=== PATIENT | female | born 1990 | race Caucasian/White ===

== ENCOUNTER 2024-12-23 07:48 | Day surgery (SDC) | payer BC, MEDICAID, SELFPAY ==
[2024-11-30 10:59] LABS: Hematocrit 40.1 % (37-47); Hemoglobin 13.3 g/dL (12.0-15.0); Mean Corp Hgb Conc 33.2 g/dL (32-36); Mean Corpuscular Hgb 29.5 pg (27.0-32.0); Mean Corpuscular Volume 88.9 fL (81-99); Mean Platelet Vol. 11.3 fl (6.2-12.0); Platelet Count 197 K/mm3 (150-450); RBC Distribution Width SD 42.2 fl (35.1-43.9); Red Blood Count 4.51 M/mm3 (4.2-5.4); White Blood Count 5.5 K/mm3 (4.4-11.0)
[2024-11-30 17:24] LABS: Anion Gap 15 (5-15); BUN 17 mg/dL (4-19); BUN/Creat Ratio 19.9 RATIO (10-20); Calcium 10.7 mg/dL (7.6-11.0); Carbon Dioxide 18.1 mmol/L (22.0-29.0); Chloride 102 mmol/L (96-108); Creatinine, Serum 0.8 mg/dL (0.6-1.0); EST Glomerular Filtration Rate 95 (>60); Glucose 256 mg/dL (70-99); Potassium 3.9 mmol/L (3.3-5.1); Sodium Level 135 mmol/L (133-145)
[2024-12-06 11:08] LABS: Cotinine Screen Blood <1.0 ng/mL (.); Nicotine Blood <1.0 ng/mL (.)
--- NOTE | 2024-12-09 17:25 | PAT.ANE_ITS ---
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 When Was Last Pacemaker Check QUESTION #4 FULL TEXT: You/Your Family Experience fever (hyperthermia) with Anesthesia Last Oral Intake Last Oral intake: Last Oral Intake NPO since Meds taken in AM with sips of water? Meds patient instructed to take am of surgery PONV PONV - senior search marketing analyst: PONV - senior search marketing analyst Female Yes 12/09/24 09:31 HX of Motion Sickness Yes 12/09/24 09:31 HX of N/V After Surgery Yes 12/09/24 09:31 Non-Smoker Yes 12/09/24 09:31 Duration of Surgery greater Yes 12/09/24 09:31 than 60 minutes Number of Risk Factors 5 12/09/24 09:31 PONV Score Severe Risk 12/09/24 09:31 Height & Weight Height & Weight: Anesthesia: Height & Weight Height 5 ft 6 in 10/20/24 10:13 Respiratory Assessment Respiratory Assessment - senior search marketing analyst: Respiratory Tract Infection Hx - senior search marketing analyst Hx Respiratory Tract Infection No 12/09/24 09:31 STOP Sleep Apnea STOP Sleep Apnea - senior search marketing analyst: STOP Sleep Apnea - senior search marketing analyst Hx Hypertension Yes: NO MEDS PRESENTLY 12/09/24 09:31 Hx Sleep Apnea No 12/09/24 09:31 CPAP BIPAP Do you snore loudly (louder No 12/09/24 09:31 than talking or can be heard Do you often feel tired/ No 12/09/24 09:31 fatigued/ sleepy during daytime? Has anyone observed you stop No 12/09/24 09:31 breathing during sleep? STOP Results Negative 12/09/24 09:31 QUESTION #5 FULL TEXT : Do you snore loudly (louder than talking or can be heard through closed doors)? 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 Specify any problems Hx of Preganancy in last 3 No 12/09/24 09:31 Months Nurse Filling Out Transfusion VCHRISTIN 12/09/24 09:31 & Questions: Date: 12/09/24 12/09/24 09:31 Time: 09:32 12/09/24 09:31 Patient unable to answer at this time (ie. confused, unrespo /Reproduction History /Reproductive History - senior search marketing analyst: /Reproductive Hx- senior search marketing analyst Hx Now No 12/09/24 09:31 Gestational Age (in weeks): EDC: Hx Hx Para Hx Section SAB No 12/09/24 09:31 [facility] Medical History (Updated 12/09/24 @ 09:31 by Maren Salinas) Cancer Anxiety Thyroid disease Insulin dependent diabetes mellitus Diabetes Anemia Back pain Migraine headache Injury of head and neck Seizures Dietary restriction Gastric reflux Former smoker Hypertension Metal plate in skull History of gastroesophageal reflux (GERD) History of hypoglycemia History of renal failure History of seizures History of brain tumor History of pneumonia History of hypertension History of migraine History of diabetes mellitus History of cancer History of blood transfusion History of UTI History of back problems History of seasonal allergies Astrocytoma Adrenal cortex neoplasm Home Medications ?Medication ?Instructions ?Recorded ?Last Taken ?Type blood-glucose sensor (Dexcom G7 #1 ea 10/20/24 Unknown History Sensor device) insulin glargine 100 unit/mL (3 16 unit subcut BID Unknown History mL) subcutaneous pen (Lantus Solostar U-100 Insulin) insulin lispro 100 unit/mL 1 sliding scale dose subcut Q6H 10/20/24 Unknown History subcutaneous solution lacosamide 100 mg tablet (Vimpat) 100 mg PO BID Unknown History levetiracetam 500 mg tablet 500 mg PO BID 10/20/24 Unk nown History (Keppra) diphenhydramine HCl 25 mg tablet 25 mg PO PRN 11/30/24 Unknown History (Banophen) levothyroxine 100 mcg tablet 100 mcg PO DAILY 11/30/24 Unknown History promethazine 25 mg tablet 25 mg PO PRN 11/30/24 Unknow n History propranolol 10 mg tablet 10 mg PO DAILY 11/30/24 Unkn own History Lactobacillus acidophilus 10 100 mmu cells PO DAILY Unknown History billion cell capsule (NewFlora) Lactobacillus acidophilus 10 100 mmu cells PO DAILY Unknown History billion cell capsule (NewFlora) alprazolam 0.5 mg tablet 0.25 mg PO BID PRN anxiety 0 12/09/24 Unknown History diazepam 5 mg/spray (0.1 mL) nasal 5 mg intranasal PRN 12/09/24 Unknown History spray (Valtoco) glucagon 3 mg/actuation nasal 3 mg intranasal PRN 03/30 Unknown History spray (Baqsimi) milk thistle 150 mg capsule 150 mg PO DAILY 12/09/24 U nknown History omeprazole 20 mg capsule,delayed 20 mg PO DAILY Unknown History release potassium chloride 20 mEq 20 meq PO DAILY 12/09/24 Unk nown History tablet,extended release(part/cryst) sennosides 8.6 mg tablet (senna) 8.6 mg PO BID PRN con stipation 12/09/24 Unknown History Allergy/AdvReac Type Severity Reaction Status Date / Time adhesive tape (tape) Allergy Mild blisters Verified 12/09/24 09:09 Corticosteroids Allergy Mild Other Verified 12/09/24 09:09 (Glucocorticoids) (steroids) Family History (Updated 10/20/24 @ 10:12 by Emily Hutton) Father Alcoholism Skin cancer Mother Anemia Anxiety Depression Hypertension Grandmother Diabetes Arthritis Surgical History (Updated 12/09/24 @ 09:31 by Maren Salinas) Hx of brain surgery H/O tubal ligation Previous section H/O: hysterectomy H/O lumpectomy Social History (Updated 10/20/24 @ 10:12 by Emily Hutton) Smoking Status: Former smoker how long ago did patient quit smoking: quit 6-7 years ago alcohol intake: never substance use type: does not use additional social history: pt denies vaping, denies marijuana use,denies edibles, denies aspirin, denies ibuprofen use. Audit: Pertinent Findings Pertinent Findings EKG Perinent findings: October 16, 2023. Sinus tachycardia 131 bpm. No STEMI. Normal QTc. Recommendation Anesthesia Recommendation Anesthesia recommendation: F/U recommended (Patient should get a repeat twelve- lead EKG prior to surgery.)
--- NOTE | 2024-12-21 13:57 | EKG12_ITS ---
Test Reason : PRE OP Blood Pressure : */* mmHG Vent. Rate : 58 BPM Atrial Rate : 58 BPM P-R Int : 146 ms QRS Dur : 84 ms QT Int : 404 ms P-R-T Axes : 43 84 45 degrees QTcB Int : 396 ms Sinus bradycardia Otherwise normal ECG Confirmed by ANGEL MAX, AP ([id number]), associate entertainment editor ZBIGNIEW VALENZUELA ([id number]) on 12/22/2024 8:49:11 AM Referred By: Courtney Ferguson Confirmed By: AP ORTIZ MD
[2024-12-21 19:00] LABS: Hemoglobin A1c 6.7 % (<=5.6)
[2024-12-23] VITALS (12 sets, daily range): BP systolic 94–118; BP diastolic 53–76; PULSE 65–72; RESP 16; TEMP 36.1–37.1; O2SAT 92–98; BMI 37.3
--- NOTE | 2024-12-23 08:07 | EKG12_ITS ---
Test Reason : P Blood Pressure : */* mmHG Vent. Rate : 68 BPM Atrial Rate : 68 BPM P-R Int : 148 ms QRS Dur : 84 ms QT Int : 376 ms P-R-T Axes : 63 75 54 degrees QTcB Int : 399 ms Normal sinus rhythm Normal ECG Confirmed by ANGEL MAX, AP ([id number]), writer editor SUSAN GONZALEZ ([id number]) on 12/24/2024 11:38:09 AM Referred By: Courtney Ferguson Confirmed By: AP ORTIZ MD
[2024-12-23] MEDS: 0.9% Normal Saline (1000mL) 1,000 ML 15 ML IV (08:36)
--- NOTE | 2024-12-23 08:46 | PRE.ANES_ITS ---
ASA Classification* ASA Classification ASA Classification: 3 Assessment & Plan Anesthesia* Anesthesia Assessment Anesthesia Assessment: Discussed sedation and/or anesthesia options, risks, benefits, and alternatives with patient/parents/legal guardian/POA. Questions invited. The patient/parents/legal guardian/POA seems to understand and agrees to proceed with anesthesia plan. Reviewed the physical assessment, medical history, allergy history and patient home medications list prior to surgery/procedure/anesthetic and documented any changes. Performed airway and anesthesia risk assessments. Anesthesia Type Anesthesia Type: General History Source History Obtained from:: Patient and Chart Anesthesia Focused Assessment* Temperature: 98.3 F Pulse Rate: 69 Blood Pressure: 118/76 Respiratory Rate: 16 Pulse Ox: 98 Oxygen Delivery Method: Room Air Airway Assessment Mouth opens: >3 cm Mallampati Score: I Teeth Condition: Chipped/Broken (Patient has a broken right lower molar.) Neck Range of motion (ROM): Full ROM Focused Labs Anesthesia Preop lab: CBC WBC 5.5 K/mm3 (4.4-11.0) 11/30/24 10:11/30/24 RBC 4.51 M/mm3 (4.2-5.4) 11/30/24 10:11/30/24 Hgb 13.3 g/dL (12.0-15.0) 11/30/24 10:11/30/24 Hct 40.1 % (37-47) 11/30/24 10:11/30/24 Plt Count 197 K/mm3 (150-450) 11/30/24 10:11/30/24 CHEMISTRY Potassium 3.9 mmol/L (3.3-5.1) 11/30/24 10:11/30/24 Sodium 135 mmol/L (133-145) 11/30/24 10:11/30/24 BUN 17 mg/dL (4-19) 11/30/24 10:11/30/24 Creatinine 0.8 mg/dL (0.6-1.0) 11/30/24 10:11/30/24 Glucose 256 mg/dL (70-99) H 11/30/24 10:11/30/24 TSH 2.100 uIU/mL (0.300-4.200) 12/21/24 14:32 12/04 05/30 COAG Pre-Assessment Diagnosis/Proposed Procedure Planned Operative Procedure(s): (B) Bilateral breast reduction Anesthesia History Anesthesia History - direct support professional caregiver: Anesthesia History - direct support professional caregiver Hx Hospitalization No 12/09/24 09:31 Any Problems With Anesthesia No 12/09/24 09:31 Cholinesterase deficiency No 12/09/24 09:31 You/Your Family Experience No 12/09/24 09:31 fever (hyperthermia) with Relationship Recent Exposure to Contagious No 12/23/24 08:13 Disease Does patient have nerve No 12/09/24 09:31 stimulator Patient instructed to have device shut off --Does patient have Pacemaker No 12/23/24 08:13 or ICD? When Was Last Pacemaker Check QUESTION #4 FULL TEXT: You/Your Family Experience fever (hyperthermia) with Anesthesia Last Oral Intake Last Oral intake: Last Oral Intake NPO since 06:00 12/23/24 08:13 Meds taken in AM with sips of Yes 12/23/24 08:13 water? Meds patient instructed to see medlist 12/23/24 08:13 take am of surgery Any additional information?: Yes NPO since: 06:00 (Patient medications this morning at 6 AM with sips of water.) Meds taken in AM with sips of water?: Yes PONV PONV - direct support professional caregiver: PONV - direct support professional caregiver Female Yes 12/09/24 09:31 HX of Motion Sickness Yes 12/09/24 09:31 HX of N/V After Surgery Yes 12/09/24 09:31 Non-Smoker Yes 12/09/24 09:31 Duration of Surgery greater Yes 12/09/24 09:31 than 60 minutes Number of Risk Factors 5 12/09/24 09:31 PONV Score Severe Risk 12/09/24 09:31 Height & Weight Height & Weight: Anesthesia: Height & Weight Height 5 ft 6 in 12/23/24 08:13 Weight: 105 kg 12/23/24 08:13 Body Mass Index (BMI) 37.3 12/23/24 08:13 Respiratory Assessment Respiratory Assessment - direct support professional caregiver: Respiratory Tract Infection Hx - direct support professional caregiver Hx Respiratory Tract Infection No 12/09/24 09:31 Any additional information?: Yes Hx Respiratory Tract Infection: Yes (Recent cold in the past couple weeks. Currently resolved. Lungs are clear) STOP Sleep Apnea STOP Sleep Apnea - direct support professional caregiver: STOP Sleep Apnea - direct support professional caregiver Hx Hypertension Yes: NO MEDS PRESENTLY 12/09/24 09:31 Hx Sleep Apnea No 12/09/24 09:31 CPAP BIPAP Do you snore loudly (louder No 12/09/24 09:31 than talking or can be heard Do you often feel tired/ No 12/09/24 09:31 fatigued/ sleepy during daytime? Has anyone observed you stop No 12/09/24 09:31 breathing during sleep? STOP Results Negative 12/09/24 09:31 QUESTION #5 FULL TEXT : Do you snore loudly (louder than talking or can be heard through closed doors)? Tobacco Use History Tobacco Use History - direct support professional caregiver: Tobacco Use History - direct support professional caregiver Tobacco Use Smoking Status Former smoker 12/09/24 09:31 Hx Tobacco Use No 12/09/24 09:31 Years Smoking Packs Smoked per Day Smoking Cessation Date was No - quit smoking greater 12/09/24 09:31 within the last 15 years than 15 years ago Hx Smoking Cessation Date Hx Smoking Cessation Counseling Hematologic Medial History Hematologic Hx - direct support professional caregiver: Hematologic Medical Hx - machine repairer Hx of Blood Transfusion Yes 12/09/24 09:31 Hx of Transfusion in last 3 No 12/09/24 09:31 Months Date of Last Transfusion (if within last 3 months) Ever experience any problems No 12/09/24 09:31 with transfusion(s)? Specify any problems Hx of Preganancy in last 3 No 12/09/24 09:31 Months Nurse Filling Out Transfusion VCHRISTIN 12/09/24 09:31 & Questions: Date: 12/09/24 12/09/24 09:31 Time: 09:32 12/09/24 09:31 Patient unable to answer at this time (ie. confused, unrespo /Reproduction History /Reproductive History - direct support professional caregiver: /Reproductive Hx- direct support professional caregiver Hx Now No 12/09/24 09:31 Gestational Age (in weeks): EDC: Hx Hx Para Hx Section SAB No 12/09/24 09:31 Active Medications Active Medications: Current Medications Generic Name Dose Route Start Last Admin Trade Name Freq PRN Reason Stop Dose Admin Cefazolin Sodium 2 gm/ N/A 20 mls @ 400 mls/hr 12/23/24 09:25 IV 12/23/24 09:27 PREOP ONE Sodium Chloride 1,000 mls @ 15 mls/hr 12/23/24 08:35 12/23/24 08:36 IV 15 mls/hr .Q48H NICHOLE Administration PFSH Medical History Cancer Anxiety Thyroid disease Insulin dependent diabetes mellitus Diabetes Anemia Back pain Migraine headache Injury of head and neck Seizures Dietary restriction Gastric reflux Former smoker Hypertension Metal plate in skull History of gastroesophageal reflux (GERD) History of hypoglycemia History of renal failure History of seizures History of brain tumor History of pneumonia History of hypertension History of migraine History of diabetes mellitus History of cancer History of blood transfusion History of UTI History of back problems History of seasonal allergies Astrocytoma Adrenal cortex neoplasm Home Medications ?Medication ?Instructions ?Recorded ?Last Taken ?Type blood-glucose sensor (Dexcom G7 #1 ea 10/20/24 Unknown History Sensor device) insulin glargine 100 unit/mL (3 16 unit subcut BID Unknown History mL) subcutaneous pen (Lantus Solostar U-100 Insulin) insulin lispro 100 unit/mL 1 sliding scale dose subcut Q6H 10/20/24 Unknown History subcutaneous solution lacosamide 100 mg tablet (Vimpat) 100 mg PO BID 12/23/24 History levetiracetam 500 mg tablet 500 mg PO BID 10/20/24 History (Keppra) diphenhydramine HCl 25 mg tablet 25 mg PO PRN 11/30/24 Unknown History (Banophen) levothyroxine 100 mcg tablet 100 mcg PO DAILY 11/30/24 Unknown History promethazine 25 mg tablet 25 mg PO PRN 11/30/24 Unknow n History propranolol 10 mg tablet 10 mg PO DAILY 11/30/24 Unkn own History Lactobacillus acidophilus 10 100 mmu cells PO DAILY Unknown History billion cell capsule (NewFlora) Lactobacillus acidophilus 10 100 mmu cells PO DAILY Unknown History billion cell capsule (NewFlora) alprazolam 0.5 mg tablet 0.25 mg PO BID PRN anxiety 0 12/09/24 Unknown History diazepam 5 mg/spray (0.1 mL) nasal 5 mg intranasal PRN 12/09/24 Unknown History spray (Valtoco) glucagon 3 mg/actuation nasal 3 mg intranasal PRN 03/30 Unknown History spray (Baqsimi) milk thistle 150 mg capsule 150 mg PO DAILY 12/09/24 U nknown History omeprazole 20 mg capsule,delayed 20 mg PO DAILY Unknown History release potassium chloride 20 mEq 20 meq PO DAILY 12/09/24 Unk nown History tablet,extended release(part/cryst) sennosides 8.6 mg tablet (senna) 8.6 mg PO BID PRN con stipation 12/09/24 Unknown History cephalexin 500 mg capsule 500 mg PO BID #14 caps 12/21 Unknown Rx oxycodone-acetaminophen 5 mg-325 1 tab PO TID PRN pain 3 days #8 12/21/24 Unknown Rx mg tablet (Percocet) tab-caps Allergy/AdvReac Type Severity Reaction Status Date / Time adhesive tape (tape) Allergy Mild blisters Verified 12/23/24 08:11 Corticosteroids AdvReac Mild Other Verified 12/23/24 08:11 (Glucocorticoids) (steroids) Family History Father Alcoholism Skin cancer Mother Anemia Anxiety Depression Hypertension Grandmother Diabetes Arthritis Surgical History Hx of brain surgery H/O tubal ligation Previous section H/O: hysterectomy H/O lumpectomy Social History Smoking Status: Former smoker how long ago did patient quit smoking: quit 6-7 years ago alcohol intake: never substance use type: does not use additional social history: pt denies vaping, denies marijuana use,denies edibles, denies aspirin, denies ibuprofen use. Review of Systems (Anesthesia) ROS Narrative System reviewed and no additional complaints, except as documented.
[2024-12-23 08:58] LABS: Bedside Glucose 62 mg/dL (74-106)
--- NOTE | 2024-12-23 09:25 | BR_PTH ---
PATIENT: SALBADOR ESCOBAR LOC: [facility] – [place] U#:[id number] AGE/SX: 34/F ROOM: RE12/23/[address]: Dr. Courtney Ferguson MD : 1990 BED: DIS: 12/23/2024 SPEC #: [id number] RECD: 12/24/24 09:55 STATUS: RAD AMIRAH #: [id number] FELA: 12/23/24 09:[address]: Courtney Ferguson DEPT: SURGICAL PATHOLOGY RECD BY: Karan Mayer ENTERED: 12/24/24 09:56 SP TYPE: MAMOPLASTY OTHR DR: Rachana Primary Care Phys Tissues: B - Right breast, NOS A - Left breast, NOS Procedures: Surgery Specimen Level IV HEADER OPERATION: Bilateral breast reduction PRE-OP DIAGNOSIS: Breast hypertrophy, chronic neck pain, chronic shoulder pain, chronic back pain TISSUE SUBMITTED: A- Left breast tissue - 376gm, B- Right breast tissue - 480gm Ischemic Time: 1 minute Fixation Time: 30 hours MICROSCOPIC DIAGNOSIS A. Left breast, reduction mammoplasty: * Benign breast tissue with fibroadenoma (0.6 cm) and rare benign microcalcification (376 grams). B. Right breast, reduction mammoplasty: * Benign breast tissue (480 grams). MICROSCOPIC DESCRIPTION Slides are reviewed. GROSS DESCRIPTION A - Received in fixative is one container labeled with the patient's name and designated Left breast tissue- 376gm. The specimen consists of three pieces of skin with underlying fatty tissue. The first piece of skin is a triangle measuring 8.0 x 4.5 cm. The attached tissue extends to a depth of 4.5 cm. The next triangular shape piece of skin measures 10 x 6 cm with attached underlying tissue measuring 3 cm. The third piece of skin measures 6 x 2 cm with underlying tissue extending to a depth of 2 cm. The third piece of skin measures 4.4 x 1.0 x 0.4 cm. There are also three loose fragments of skin. One of the loose fragments measures 15 cm in length x 3.5 cm in width x 0.4 cm in thickness. Relay Record Clerk sections are submitted of the firmer textured areas in cassettes A1-A6. B - Received in fixative is one container labeled with the patient's name and designated Right breast tissue - 480gm. The specimen consists of three pieces of skin with attached soft tissue and multiple fragments of fibrofatty tissue aggregating to 17 x 8 x 4 cm. The largest triangular piece of skin measures 10.5 x 5.0 cm with the soft tissue extending to a depth of 4.0 cm. The next piece of skin measures 8.5 x 5cm and the soft tissue goes to a depth of 3.7cm. The third piece of skin and soft tissue measures 4.5 x 2.3 and the soft tissue goes to a depth of 2.5 cm. The largest piece of skin measures 15cm in length, 3.8 cm in width, and has a depth of 0.3 cm. The smallest piece of skin measures 3.5 x 1.5 x 0.3 cm. Relay Record Clerk sections taken from the firmer textured areas and submitted in six cassettes B1-B6. JS.mr 12/24/2024 CPT:19436 x2
--- NOTE | 2024-12-23 09:26 | PCM.HP.BLA ---
History and Physical Date of Admission: 12/23/24 The patient is examined and there are no changes to the H&P of 12/08/2024. The patient presents for bilateral breast reduction. Informed consent is obtained and she is marked in the preop holding area prior to surgery. Assessment & Plan Assessment/Plan (1) Breast hypertrophy: (2) Chronic neck pain: (3) Chronic shoulder pain: (4) Chronic back pain: PLAN: Plan Patient for bilateral breast reduction.
[2024-12-23] MEDS: Cefazolin 2 GM in Syringe IV (10:28)
[2024-12-23] MEDS: Methylene Blue 1% 100 MG/10 ML VIAL (10:45)
[2024-12-23] MEDS: EPINEPHrine Nasal 0.1% 30 ML Bottle (10:47)
[2024-12-23 11:38] LABS: Bedside Glucose 131 mg/dL (74-106)
[2024-12-23] MEDS: Gentamicin 80 MG/2 ML Vial (11:39)
[2024-12-23 13:41] LABS: Bedside Glucose 170 mg/dL (74-106)
[2024-12-23] MEDS: Cefazolin 1 GM/50 ML BAG IV (14:28)
[2024-12-23] MEDS: Bupivacaine 0.25% 30 ML Vial (14:40)
--- NOTE | 2024-12-23 15:05 | EX.PCM.DISCH ---
Discharge Instructions Dressing / Incision Additional Dressing/Incision Instructions:: Follow the instructions given in the office. Use the incentive spirometer hourly during the day. Keep your back elevated as directed. Follow Up Care Please Follow Up With: Courtney Ferguson MD When: Next week Test Results: Test results from this visit will be discussed in further detail at your follow-up appointment, if applicable. Discharge Plan Admission Attending Provider: Courtney Ferguson Primary Care Provider: Care Physician,No Primary Instructions Print Language: Venezuelan Discharge Orders/Prescriptions Prescriptions: No Action (DME) Dexcom G7 Sensor Device See Rx Instructions .ROUTE .MEDSUPPLY Qty: 1 Patient Comments: [NO ORIGINAL SIG] Rx Instructions: As directed insulin lispro 100 unit/mL solution 1 sliding scale dose subcut Q6H Patient Comments: SLIDING SCALE insulin glargine [Lantus Solostar U-100 Insulin] 100 unit/mL (3 mL) insulin pen 16 unit subcut BID levetiracetam [Keppra] 500 mg tablet 500 mg PO BID lacosamide [Vimpat] 100 mg tablet 100 mg PO BID diphenhydramine HCl [Banophen] 25 mg tablet 25 mg PO PRN Patient Comments: [NO ORIGINAL SIG] promethazine 25 mg tablet 25 mg PO PRN Patient Comments: [NO ORIGINAL SIG] propranolol 10 mg tablet 10 mg PO DAILY levothyroxine 100 mcg tablet 100 mcg PO DAILY cephalexin 500 mg capsule 500 mg PO BID Qty: 14 0RF oxycodone-acetaminophen [Percocet] 5-325 mg tablet 1 tab PO TID PRN (Reason: pain) 3 Days Qty: 8 0RF sennosides [senna] 8.6 mg tablet 8.6 mg PO BID PRN (Reason: constipation) alprazolam 0.5 mg tablet 0.25 mg PO BID PRN (Reason: anxiety) omeprazole 20 mg capsule,delayed release(DR/EC) 20 mg PO DAILY potassium chloride 20 mEq tablet,ER particles/crystals 20 meq PO DAILY Baqsimi 3 mg/actuation spray,non-aerosol 3 mg intranasal PRN Valtoco 5 mg/spray (0.1 mL) spray,non-aerosol 5 mg intranasal PRN NewFlora 10 billion cell capsule 100 mmu cells PO DAILY milk thistle 150 mg capsule 150 mg PO DAILY Rx Instructions: give with meal/snack NewFlora 10 billion cell capsule 100 mmu cells PO DAILY Referrals / Follow Up: KIP FAUSTIN [Other] Disposition Disposition (needs filled in before D/C Order can be placed): Home, Self Care
--- NOTE | 2024-12-23 15:07 | PCM.POST.ANE ---
Anesthesia: Postop Eval I Current Vital Signs Temperature: 98.7 F Pulse Rate: 69 Blood Pressure: 99/53 Respiratory Rate: 16 Pulse Ox: 93 Oxygen Delivery Method: Room Air Assessment Airway patent: Yes Spontaneous unlabored respirations: Yes Mental status: Awake and Calm nausea: No Vomiting: No Anesthesia Complication: No Fluid Hydration Crystalloid volume administer (ml): 1,900 Total IV fluid infused: 1,900 Progress Note Anesthesia document: Postop Eval 1 completed: Yes
--- NOTE | 2024-12-23 15:08 | PCM.OPRPT ---
Problems Associated Problem List Diagnoses (1) Chronic neck pain: (2) Chronic shoulder pain: (3) Chronic back pain: (4) Breast hypertrophy: Operative Report (Standard) Operative Information Date of Procedure: 12/23/24 Pre-Operative Diagnosis: Bilateral mammary hypertrophy; chronic Post-Operative Diagnosis: Same Surgery/Procedure Performed: Bilateral breast reduction (left?376 g; right?480 g) interactive media marketing strategist: Yes Concrete Pipe Maker: Marya Elias Tasks completed by assistant floor covering printer: Closing and Retracting Type of Anesthesia: General RN Documented Start/Stop Times: Operation Date: 12/23/24 09:25 Case Time Into Pre-Op 12/23/24 07:54 Out of Pre-Op 12/23/24 10:05 Anesthesia Start 12/23/24 10:10 Into Room 12/23/24 10:10 Procedure Start 12/23/24 10:45 Procedure End 12/23/24 14:50 Anesthesia End 12/23/24 14:58 Out of Room 12/23/24 14:58 Procedure Start Time: 10:45 Procedure Stop Time: 14:50 Select all DRAINS/GRAFTS/IMPLANTS that apply: None Estimated Blood Loss: 50 cc Specimen collected: Yes Description of specimen(s) removed: Bilateral breast tissue Description of surgery: The patient presents today for bilateral breast reduction. No guarantees as to the final size is made. She is marked in the preop holding area prior to surgery. Informed consent is obtained. The patient is brought to the operating room and placed under general anesthesia in the supine position. Care is taken to pad all pressure points, apply sequential compression stockings, a Carrillo catheter, and a warming blanket. The breast and chest are prepped and draped in the usual sterile fashion. Initially began with incising the incisions along the premarked areas. The pedicle is then de-epithelialized. The medial and lateral infra aspects of the breast are removed using argon coagulation. Following this, the pedicle from the upper flap and dissection continued cephalad to the chest wall. The pedicle was then trimmed in order to allow to comfortably fit beneath the upper flap. The wound is irrigated with antibiotic solution and checked for meticulous hemostasis which is controlled with argon coagulation. The breast is then infolded and tacked together with silk suture and skin clips. With a satisfactory size and shape noted, the wounds are closed. Vicryl sutures were used initially to tack the incision and a few points. A 3-0 STRATAFIX suture is used to approximate the wound edges in 3 layers. Approximately 4-1/2 cm above the inframammary crease, an opening is made for the nipple areola and this is brought out to the surface and tacked in place with interrupted nylon suture. Following this, all incisions are approximated with running subcuticular strata fix suture. The identical procedure was performed on the opposite side. 1/4% plain Marcaine is injected along the incisions. The incisions are dressed with Xeroform and fluff gauze and she is placed in a surgery bra. She tolerated the procedure well was taken to the recovery area in an awakening in stable condition. Needle and sponge counts are correct. Surgical Findings: As above Complications Complications: No Admit VTE Documentation VTE Mechan Device Prophylaxis: SCD's
[2024-12-23] MEDS: Acetaminophen 500 MG Tablet 1000 MG PO (16:24)
--- NOTE | 2024-12-23 16:33 | POSTOPAN2_ITS ---
Anesthesia Postop Eval I Sum Postop Eval Completion status Anesthesia document: Postop Eval 1 completed: Yes Anesthesia Postop Eval I Summary Anesthesia Postop Eval I Summary: Anesthesia Postop Eval I: Assessment Summary Airway patent Yes 12/23/24 15:35 STORE GIFT WRAP [email or web address].[email or web address] Spontaneous unlabored Yes 12/23/24 15:35 STORE GIFT WRAP ASSOCIATE.[email or web address] respirations Mental status Awake,Calm 12/23/24 15:35 STORE GIFT WRAP ASSOCIATE.GDOTT nausea No 12/23/24 15:35 STORE GIFT WRAP ASSOCIATE.GDOTT Vomiting No 12/23/24 15:35 STORE GIFT WRAP ASSOCIATE.GDOTT Anesthesia Postop Eval I: Fluid Summary Crystalloid volume administer 1,900 12/23/24 15:35 STORE GIFT WRAP ASSOCIATE.GDOTT (ml) Colloids volume administered ( ml) Blood Product volume administered (ml) Total IV fluid infused 1,900 12/23/24 15:35 STORE GIFT WRAP ASSOCIATE.GDOTT Anesthesia Postop Eval I: Summary Notes Anesthesia Complication No 12/23/24 15:35 STORE GIFT WRAP ASSOCIATE.GDOTT Anesthesia Complication Comment: Post-operative progress note Anesthesia: Postop Eval II Evaluation Mental status: Awake Pain Level: 3 nausea: No Vomiting: No
--- NOTE | 2024-12-23 16:33 | PCM.POSTANE2 ---
Anesthesia Postop Eval I Sum Postop Eval Completion status Anesthesia document: Postop Eval 1 completed: Yes Anesthesia Postop Eval I Summary Anesthesia Postop Eval I Summary: Anesthesia Postop Eval I: Assessment Summary Airway patent Yes 12/23/24 15:35 SUPERVISOR WATER SOFTENER SERVICE.[email or web address] Spontaneous unlabored Yes 12/23/24 15:35 SUPERVISOR WATER SOFTENER SERVICE.GDOTT respirations Mental status Awake,Calm 12/23/24 15:35 SUPERVISOR WATER SOFTENER SERVICE.GDOTT nausea No 12/23/24 15:35 SUPERVISOR WATER SOFTENER SERVICE.GDOTT Vomiting No 12/23/24 15:35 SUPERVISOR WATER SOFTENER SERVICE.GDOTT Anesthesia Postop Eval I: Fluid Summary Crystalloid volume administer 1,900 12/23/24 15:35 SUPERVISOR WATER SOFTENER SERVICE.GDOTT (ml) Colloids volume administered ( ml) Blood Product volume administered (ml) Total IV fluid infused 1,900 12/23/24 15:35 SUPERVISOR WATER SOFTENER SERVICE.GDOTT Anesthesia Postop Eval I: Summary Notes Anesthesia Complication No 12/23/24 15:35 SUPERVISOR WATER SOFTENER SERVICE.GDOTT Anesthesia Complication Comment: Post-operative progress note Anesthesia: Postop Eval II Evaluation Mental status: Awake Pain Level: 3 nausea: No Vomiting: No
== END 2024-12-23 17:58 | disposition home or self-care (01) ==
LOC: SDC 07:48 → AC 07:50
PROVIDERS: Anesthesiology; Referring Provider Plastic Surgery; Visit Provider Plastic Surgery
PROC: 0H0U0ZZ Alteration of Left Breast, Open Approach (ICD-10-PCS; CPT 19318; principal; 2024-12-23 09:10)
DX: N62 Hypertrophy of breast (principal); E11.9 Type 2 diabetes mellitus without complications; Z79.4 Long term (current) use of insulin; D24.2 Benign neoplasm of left breast; M54.2 Cervicalgia; M54.9 Dorsalgia, unspecified; G89.29 Other chronic pain; I10 Essential (primary) hypertension; Z87.891 Personal history of nicotine dependence
CPT/HCPCS: 19318; 00402; 36415; 80048; 80323; 82962; 83036; 84443; 85027; 88305; 93005; G0480; J2405